=== PATIENT | female | born 2000 | race Caucasian/White ===

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

== ENCOUNTER 2022-07-05 16:45 | Emergency (ER) | payer MEDICAID ==
[~2022-07-05] VITALS: Ht 177.8 cm; Wt 138.6 kg
[2022-07-05 16:46] VITALS: TEMP 100.3
[2022-07-05 18:00] VITALS: BP 120/82; PULSE 89
== END 2022-07-05 18:00 | disposition home or self-care (01) ==
LOC: COL.ER 16:45
DX: U07.1 COVID-19 (principal); R51.9 Headache, unspecified; R50.9 Fever, unspecified; Z28.310 Unvaccinated for COVID-19

== ENCOUNTER 2022-10-16 14:36 | Emergency (ER) | payer MEDICAID ==
[~2022-10-16] VITALS: Ht 175.3 cm; Wt 136.4 kg
[2022-10-16 14:40] VITALS: TEMP 97.7
[2022-10-16] MEDS ORDERED: NORCO 325 MG-51 TAB PO (15:36)
[2022-10-16] MEDS ORDERED: FLEXERIL 1010 MG/TAB PO (15:36)
[2022-10-16 15:50] VITALS: BP 150/86; PULSE 75
== END 2022-10-16 15:51 | disposition home or self-care (01) ==
LOC: COL.ER 14:36
DX: S39.012A Strain of muscle, fascia and tendon of lower back, initial encounter (principal); Z28.310 Unvaccinated for COVID-19; X50.0XXA Overexertion from strenuous movement or load, initial encounter
CPT/HCPCS: J1885

== ENCOUNTER → 2024-01-06 | Outpatient (CLI) | payer MEDICAID ==
[~2024-01-06] MED LIST: FLEXERIL 1010 MG/TAB PO; NORCO 325 MG-51 TAB PO
== END ==
LOC: DIA.ED 14:28
DX: E11.9 Type 2 diabetes mellitus without complications (principal); Z79.84 Long term (current) use of oral hypoglycemic drugs; I10 Essential (primary) hypertension

== ENCOUNTER 2024-03-19 20:20 | Emergency (ER) | payer MEDICAID ==
[~2024-03-19] VITALS: Ht 177.8 cm; Wt 140.0 kg
[2024-03-19 20:21] VITALS: TEMP 98.9
[2024-03-19] MEDS ORDERED: NORCO 325 MG-51 TAB PO (21:58)
[2024-03-19 22:18] VITALS: BP 119/74; PULSE 65
== END 2024-03-19 22:18 | disposition home or self-care (01) ==
LOC: COL.ER 20:20
DX: R51.9 Headache, unspecified (principal)

== ENCOUNTER 2024-06-28 13:27 | Emergency (ER) | payer MEDICAID ==
[~2024-06-28] VITALS: Ht 152.4 cm; Wt 147.7 kg
[2024-06-28 13:44] VITALS: BP 140/834; TEMP 97.9
[2024-06-28] MEDS ORDERED: Tdap Vaccine 0.5 ML SYRINGE IM ONE (16:00)
[2024-06-28] MEDS ORDERED: Lido/EPI/Tetrac Gel 3 ML SYRINGE TOP ONE (16:00)
[2024-06-28 17:32] VITALS: PULSE 75
== END 2024-06-28 17:32 | disposition home or self-care (01) ==
LOC: COL.ER 13:27
DX: S91.114A Laceration without foreign body of right lesser toe(s) without damage to nail, initial encounter (principal); W18.31XA Fall on same level due to stepping on an object, initial encounter